=== PATIENT | female | born 1985 | race Caucasian/White ===

== ENCOUNTER 2017-06-25 22:18 | Inpatient (IN) | payer OTHER ==
--- NOTE | 2017-06-25 22:41 | EDPHY ---
H & P Stated Complaint: SI with ETOH and 4mg Ativan - Personal History LMP (Females 10-55): 1-7 Days Ago Tetanus Vaccine Date: < 10 YEARS - Medical/Surgical History Hx Asthma: No Hx Chronic Respiratory Disease: No Hx Diabetes: No Hx Cardiac Disease: No Hx Renal Disease: No Hx Cirrhosis: No Hx Alcoholism: No Hx HIV/AIDS: No Hx Splenectomy or Spleen Trauma: No Other PMH: migraines, ADHD, depression, hypothyroid, BIPOLAR, CONCUSSION X11 - Social History Smoking Status: Never smoked Time Seen by Provider: 06/25/17 22:30 HPI/ROS: CHIEF COMPLAINT: Suicidal ideation HISTORY OF PRESENT ILLNESS: 32-year-old female arrives via private vehicle with a friend who drove her stating that she has been drinking heavy amounts of alcohol all day, has been endorsing suicidal ideation with plan to either overdose on medication, lacerated her wrists or hang herself. She consumed a total of 4-6 mg of Ativan at least 4 hours ago. Denies hallucination. Denies headache. Denies chest pain. Denies seizure. Denies physical pain or trauma REVIEW OF SYSTEMS: A ten point review of systems was performed and is negative with the exception of the items mentioned in the HPI PAST MEDICAL & SURGICAL HISTORY: Depression SOCIAL HISTORY:positive for heavy alcohol use today PHYSICAL EXAM (Prior to examination, patient consented to physical exam, hands were washed and my usual and customary physical exam procedures followed) 1) GENERAL: Well-developed, well-nourished, alert and oriented. Appears intoxicated . 2) HEAD: Normocephalic, atraumatic 3) HEENT: Pupils equal, round, reactive to light bilaterally. Sclera anicteric. 4) NECK: Full range of motion, no meningeal signs. 5) LUNGS: Clear auscultation bilaterally, no wheezes, no rhonchi, no retractions. 6) HEART: Regular rate and rhythm, no murmur, no heave, no gallop. 7) ABDOMEN: No guarding, no rebound, no focal tenderness,, 8) MUSCULOSKELETAL: No peripheral edema or discoloration. 9) BACK: no visual or palpable abnormality. 10) SKIN: No rash, no petechiae. 11) Psychiatric: Patient is oriented X 3, there is no agitation. DIFFERENTIAL DIAGNOSIS: in no particular include but limited to suicidal ideation, homicidal ideation, depression, acute alcohol intoxication (Kandice Lawler Juju) Constitutional: Initial Vital Signs Temperature (C) 36.7 C 06/25/17 22:22 Heart Rate 95 06/25/17 22:22 Respiratory Rate 16 06/25/17 22:22 Blood Pressure 117/74 06/25/17 22:22 O2 Sat (%) 96 06/25/17 22:22 O2 Delivery Mode Room Air Allergies/Adverse Reactions: venom-honey bee [bee venom (honey bee)] Allergy (Verified 08/18/14 22:31) Home Medications: Medication Instructions Recorded Levothyroxine [Synthroid 112 mcg 0 mcg PO DAILY06 12/06/11 (RX)] Epi Pen Unk Dose 12/14/13 Cytomel 08/18/14 Ativan 06/25/17 Buspar (*) 06/25/17 Rexulti 06/25/17 Trintellix 06/25/17 Vyvanse 06/25/17 Medical Decision Making ED Course/Re-evaluation: 10:39 p.m.: Patient states that she has been drinking alcohol "all day". She has been placed on emergency department detain or secondary to acute intoxication, will be allowed to sober prior to mental health evaluation for suicidal ideation..Care of patient under supervision of [secondary] supervising physician Dr Han . (Kandice Lawler Juju) 0641: No acute events overnight. Resting. Still needs mental health evaluation. Suicidal with acute alcohol intoxication. On a detain her. 0642: This patient was subsequently placed on M1 hold by mental health. And had evaluation. Actively suicidal and will seek inpatient psychiatric hospitalization. Possibly [address] [place] [address] today. (Darius Han) Other Provider: 0700 care assumed by me from Dr. Han pending placement. 0820 patient has been accepted to [address] Dockery, I have completed the EMTALA. (Jad Alonso) - Data Points Laboratory Results: Laboratory Results 06/25/17 23:00 06/25/17 23:00 06/25/17 06/25/17 06/25/17 23:55 23:00 23:00 WBC RBC Hgb Hct MCV MCH MCHC RDW Plt Count MPV Neut % (Auto) Lymph % (Auto) Duval % (Auto) Eos % (Auto) Baso % (Auto) Nucleat RBC Rel Count Absolute Neuts (auto) Absolute Lymphs (auto) Absolute Monos (auto) Absolute Eos (auto) Absolute Basos (auto) Absolute Nucleated RBC Immature Gran % Immature Gran # Sodium 142 mEq/L mEq/L (134-144) Potassium 4.4 mEq/L mEq/L (3.5-5.2) Chloride 108 mEq/L mEq/L (97-110) Carbon Dioxide 22 mEq/l mEq/l (22-31) Anion Gap 12 mEq/L mEq/L (8-16) BUN 19 mg/dL mg/dL (7-23) Creatinine 1.7 mg/dL H mg/dL (0.6-1.0) Estimated GFR 34 Glucose 92 mg/dL mg/dL (70-100) Calcium 8.9 mg/dL mg/dL (8.5-10.4) Beta HCG, Qual NEGATIVE Salicylates < 1.0 mg/dL L mg/dL (2.0-20.0) Urine Opiates Screen NEGATIVE (NEGATIVE) Acetaminophen < 10 mcg/mL L mcg/mL (10-30) Urine Barbiturates NEGATIVE (NEGATIVE) Ur Phencyclidine Scrn NEGATIVE (NEGATIVE) Ur Amphetamine Screen NEGATIVE (NEGATIVE) U Benzodiazepines Scrn NON-NEGATIVE H (NEGATIVE) Urine Cocaine Screen NEGATIVE (NEGATIVE) U Marijuana (THC) Screen NEGATIVE (NEGATIVE) Ethyl Alcohol 85 mg/dL H mg/dL (0-10) 06/25/17 23:00 WBC 8.27 10^3/uL 10^3/uL (3.80-9.50) RBC 4.00 10^6/uL L 10^6/uL (4.18-5.33) Hgb 12.9 g/dL g/dL (12.6-16.3) Hct 37.1 % L % (38.0-47.0) MCV 92.8 fL fL (81.5-99.8) MCH 32.3 pg pg (27.9-34.1) MCHC 34.8 g/dL g/dL (32.4-36.7) RDW 11.9 % % (11.5-15.2) Plt Count 285 10^3/uL 10^3/uL (150-400) MPV 8.1 fL L fL (8.7-11.7) Neut % (Auto) 67.9 % % (39.3-74.2) Lymph % (Auto) 22.7 % % (15.0-45.0) Duval % (Auto) 6.7 % % (4.5-13.0) Eos % (Auto) 1.5 % % (0.6-7.6) Baso % (Auto) 1.0 % % (0.3-1.7) Nucleat RBC Rel Count 0.0 % % (0.0-0.2) Absolute Neuts (auto) 5.62 10^3/uL 10^3/uL (1.70-6.50) Absolute Lymphs (auto) 1.88 10^3/uL 10^3/uL (1.00-3.00) Absolute Monos (auto) 0.55 10^3/uL 10^3/uL (0.30-0.80) Absolute Eos (auto) 0.12 10^3/uL 10^3/uL (0.03-0.40) Absolute Basos (auto) 0.08 10^3/uL 10^3/uL (0.02-0.10) Absolute Nucleated RBC 0.00 10^3/uL 10^3/uL (0-0.01) Immature Gran % 0.2 % % (0.0-1.1) Immature Gran # 0.02 10^3/uL 10^3/uL (0.00-0.10) Sodium Potassium Chloride Carbon Dioxide Anion Gap BUN Creatinine Estimated GFR Glucose Calcium Beta HCG, Qual Salicylates Urine Opiates Screen Acetaminophen Urine Barbiturates Ur Phencyclidine Scrn Ur Amphetamine Screen U Benzodiazepines Scrn Urine Cocaine Screen U Marijuana (THC) Screen Ethyl Alcohol Departure - Departure Disposition: [facility] IP Clinical Impression: Suicidal ideation Condition: Fair Referrals: NONE *PRIMARY CARE P,. [Primary Care Provider] - As per Instructions
[2017-06-25 23:09] LABS: % IMMATURE GRANULYOCYTES 0.2 % (0.0-1.1); ABSOLUTE IMMATURE GRANULOCYTES 0.02 10^3/uL (0.00-0.10); ADD DIFF? NO; ADD MORPH? NO; ADD SCAN? NO; ATYPICAL LYMPHOCYTE FLAG 10 (0-99); FRAGMENT RBC FLAG 0 (0-99); HEMATOCRIT 37.1 % (38.0-47.0); HEMOGLOBIN 12.9 g/dL (12.6-16.3); LEFT SHIFT FLG 0 (0-99); LIPEMIA HEMOLYSIS FLAG 90 (0-99); MEAN CELL HEMOGLOBIN 32.3 pg (27.9-34.1); MEAN CELL HEMOGLOBIN CONCENTR. 34.8 g/dL (32.4-36.7); MEAN CELL VOLUME 92.8 fL (81.5-99.8); MEAN PLATELET VOLUME 8.1 fL (8.7-11.7); PLATELET CLUMPS FLAG 0 (0-99); PLATELET COUNT 285 10^3/uL (150-400); RED CELL DISTRIBUTION WIDTH 11.9 % (11.5-15.2)
[2017-06-25 23:31] LABS: ANION GAP 12 mEq/L (8-16); CALCIUM 8.9 mg/dL (8.5-10.4); CARBON DIOXIDE 22 mEq/l (22-31); CHLORIDE 108 mEq/L (97-110); CREATININE 1.7 mg/dL (0.6-1.0); ETHANOL SERUM 85 mg/dL (0-10); GLOMERULAR FILTRATION RATE 34; GLUCOSE 92 mg/dL (70-100); POTASSIUM 4.4 mEq/L (3.5-5.2); SALICYLATE < 1.0 mg/dL (2.0-20.0); SODIUM 142 mEq/L (134-144)
[2017-06-26] MEDS ORDERED: LIOTHYRONINE SODIUM 5 MCG TAB PO SCH (09:00)
[2017-06-26] MEDS ORDERED: MAGNESIUM HYDROXIDE 30 ML UDCUP PO PRN (12:30)
[2017-06-26] MEDS ORDERED: LORazepam 0.5 MG TAB PO PRN (12:30)
[2017-06-26] MEDS ORDERED: MAG HYDROX/AL HYDROX/SIMETH 30 ML UDCUP PO PRN (12:30)
[2017-06-26] MEDS ORDERED: ACETAMINOPHEN 325 MG TAB PO PRN (12:30)
[2017-06-26] MEDS ORDERED: LEVOTHYROXINE 137 MCG TAB PO SCH (12:45)
[2017-06-26] MEDS ORDERED: ZIPRASIDONE HCL 20 MG CAP PO ONE (14:18)
[2017-06-26] MEDS ORDERED: hydrOXYzine HCL 25 MG TAB PO PRN (14:20)
[2017-06-26] MEDS: LIOTHYRONINE SODIUM 5 MCG TAB PO SCH (14:24)
--- NOTE | 2017-06-26 15:36 | BAPA ---
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 CHIEF COMPLAINT: "I had a really bad week. My depression's really bad." HISTORY OF PRESENT ILLNESS: Patient reports that she has felt depressed and hopeless about life since around age 20, when she missed the Olympics. She reports that she has had recurrent feelings of feeling sad, down, hopeless, and difficulty enjoying things. She reports that her depression has been worse over the past 6 months. She reports in February, she overdosed on Wellbutrin at home, did not tell anyone, but then did tell her outpatient provider several days later. She also reports that she has felt more overwhelmed, and she has had brief thoughts of overdosing on pills, cutting her wrists or hanging herself. She denies any recent furtherance toward self-harm or self- destructive behavior. She reports that yesterday went over to a friend's house to have dinner. She reports she had dinner and several drinks with her friend, and reported that she was having these suicidal thoughts, and her friend took her to the emergency room. The patient was admitted on an M1 hold from the emergency department due to concern that she was a danger to herself. Patient denies any recurrent or regular substance abuse. She reports only drinking once a week. She denies any history of hallucinations or paranoia. She does report a history of probable manic episodes in the past. She reports in the past she has impulsively gone on spending sprees. She has also impulsively traveled to [place]. She has also been promiscuous when she has mood swings. She reports approximately 6 years ago she had a 3-4 month episode where she only slept 2-3 hours nightly with racing thoughts, and during that time was more agitated and more impulsive. She reports in the past week she has not been doing anything impulsive. Has not had any grandiosity or any decreased need for sleep or any hyperactivity. She reports she has been sleeping about 10 hours. She does report feeling irritable and agitated, and sometimes feeling that her mood is going up and down. She reports that she has been on Trintellix for depression for the past month, and then she reports that she has been on Vyvanse for about 3 weeks for ADHD. She also reports about a week ago she started Rexulti for depression. PAST PSYCHIATRIC HISTORY: The patient apparently has a history of one 48-hour hospitalization at [facility]. At that time, she apparently had suicidal thoughts. The patient reports numerous psychiatric medication trials in the past. She reports 1 overdose on Wellbutrin in the summer of 2016. She denies other suicide attempts. She denies any history of violence toward others. She may have developed a rash with Lamictal in the past, and so this will be listed as an allergy. She reports no clear benefit from Trintellix, Rexulti, Abilify, Seroquel, [place]. She also reports that she got agitated and "crazy wild" with Ritalin. She also reports no benefit from Adderall in the past. She reports excessive sedation with Seroquel. She reports that she developed restlessness with Abilify. PAST MEDICAL HISTORY: The patient is currently in outpatient treatment with Susanne Nascimento at [facility]. She reports she is in treatment for thyroid disease, as well as renal disease and a possible autoimmune disease. She currently takes Synthroid 137 mcg daily, Cytomel 15 mg daily for thyroid disease. The patient was diagnosed with borderline renal insufficiency as well , of unknown cause and has a history of recurrent urinary tract infections. She reports multiple past concussions during speed skating accidents. ALLERGIES: She is allergic to bee stings. She is also possibly allergic to Lamictal. SOCIAL HISTORY: She reports she was raised by her parents. She reports that her mother was verbally abusive and may have had a mood disorder. She denies any family history of suicide attempts or substance abuse. She reports that at age 11, she went to an Olympic training camp and moved away from her parents. She graduated from college. She has a master's degree in teaching. She currently lives alone with a dog and reports a friend is watching the dog while she is in the hospital. She has never been , has no children. She has several friends in the area. VITAL SIGNS: Blood pressure 109/66, heart rate 77, respiratory rate 14, pulse ox 98% on room air. She is afebrile. LABS: White blood cell count 8.2, hemoglobin 12.9, platelet count 285. Sodium 142, potassium 4.4, creatinine 1.7, glucose 92, calcium 8.9. TSH is low at 0.113. Urine drug screen was positive for benzodiazepines as the patient was prescribed p.r.n. Ativan prior to admission. She had a blood alcohol level of 0.085. Addendum to medications: The patient is reportedly taking Ativan 1 mg daily p.r.n. for anxiety, Trintellix unknown dose, Rexulti unknown dose, as well as BuSpar 10 mg twice a day and Vyvanse possibly 70 mg daily along with Synthroid 137mcg and Cytomel 15mg. MENTAL STATUS EXAMINATION: She is an alert white female in no acute distress with a possible rash on both of her arms. He speech is regular in rate and rhythm but loud at times. She appears well-appearing, is ambulatory. She has no focal weakness or tremors. She appears distracted. She does not appear hyperactive or restless. She has had labile affect on the unit. When she was brought in by the paramedics, she was smiling and joking with the paramedics. Later she was dysphoric and tearful later. Later she was smiling and joking. She has labile affect. Her mood is "not very good." Her thoughts are organized. She reports brief suicidal thoughts to hang herself or cut her wrists, but denies furtherance toward this. She denies any violent thoughts. She denies hallucinations or paranoia. Her memory is good. Her insight is fair. Her judgment appears to be impaired. ASSESSMENT: Bipolar disorder type 1, most recent episode depressed with mixed features. History of attention deficit hyperactivity disorder. History of multiple concussions. Also, hypothyroidism and possible autoimmune disease, with borderline renal insufficiency and a history of a positive KATHYA. The overall assessment is the patient appears to be having a depressive episode with mixed features. She has been prescribed an antidepressant called Trintellix for the past few months for depression, as well as Vyvanse in the past 3 weeks for attention deficit hyperactivity disorder. She denies any recent reckless behaviors or insomnia, but she has had mood lability, irritability, and severe depression with suicidal thinking. PLAN: 1. The patient is on M1 hold for possible danger to herself. She will be on safety precautions or suicide precautions on the unit. 2. Discussed the assessment. The patient was agreeable to stop her Vyvanse, BuSpar, Rexulti, and Trintellix. After a discussion of alternative treatments including Tegretol, Depakote, electroconvulsive therapy, and Geodon, the patient prefers to start Geodon. We will give 20 mg now and reevaluate for side effects in about 90 minutes. 3. Will continue the patient's Synthroid. The patient was seen by the hospitalist, who recommended reducing her Cytomel from 15 mg to 10 mg. The patient does report she has endocrinology and renal specialty follow-up appointments after discharge. 4. We will monitor the patient's behavior on the inpatient unit. 5. We will order 25 mg of hydroxyzine p.r.n. for insomnia or restlessness 6. The patient appears to be at low risk for alcohol or benzodiazepine withdrawal. We will order Ativan 1 mg q.4 hours p.r.n. if having severe anxiety or panic. 7. The patient reports her friend is taking care of her dog. 8. I left a voicemail for the patient's nurse practitioner, Dr. Shannen Naylor , phone #[phone] extension 7. Addendum: patient tolerated Geodon 20mg without side effects, evaluated 90 minutes after taking a dose. Ordered Geodon 20mg BID with food. Patient given SHANTELL handouts on Geodon and ECT to review. /[id number]/MODL MTDD
--- NOTE | 2017-06-26 17:01 | BCON ---
[f rep st] BEHAVIORAL HEALTH CONSULTATION INTERNAL MEDICINE CONSULTATION DATE OF CONSULTATION: 06/26/2017 REFERRING PHYSICIAN: HERACLIO AVILA MD REASON FOR REFERRAL: Medical clearance for inpatient behavioral health stay. HISTORY OF PRESENT ILLNESS: This patient was brought to the [facility] Emergency Department by a friend. She had been having suicidal ideation with a plan, and she has been drinking heavy amounts of alcohol. She was evaluated by the mental health team and admitted for further psychiatric care. She is currently without any acute complaints. PAST MEDICAL HISTORY: 1. Chronic renal insufficiency. 2. Frequent UTIs. 3. Multiple concussions. 4. Vertebral fracture and other orthopedic fractures. 5. Depression. MEDICATIONS: 1. Liothyronine sodium 15 mcg p.o. daily. 2. Levothyroxine 137 mcg p.o. daily. 3. Levalbuterol 1 puff daily p.r.n. 4. Lorazepam 1 mg p.o. daily p.r.n. 5. EpiPen p.r.n. allergic reaction. 6. Buspirone 10 mg p.o. twice daily. 7. Vortioxetine 20 mg p.o. daily. 8. Brexpiprazole 0.5 mg p.o. at bedtime. 9. Lisdexamfetamine 70 mg p.o. daily. ALLERGIES: She has an allergy to honey bee venom. SOCIAL HISTORY: She lives by herself with a dog. She is a nonsmoker. She uses alcohol. 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 FAMILY HISTORY: Noncontributory. She denies any history of renal insufficiency. REVIEW OF SYSTEMS: A 10-point review of systems was conducted and was negative. PHYSICAL EXAMINATION: VITAL SIGNS: Blood pressure is 109/66, heart rate is 77, respiratory rate is 14, oxygen saturation is 98% on room air, temperature is 36.9 degrees centigrade. Her weight is 72.6 kg for a body mass index of 23.6. GENERAL: This is a well-nourished, well-developed woman, appears her chronologic age, cooperative and in no acute distress. HEENT: Extraocular movements are intact. Pupils are equal, round, reactive to light. Mucous membranes are moist. Dentition is in good condition. NECK: Supple. HEART: Regular rate and rhythm with no murmurs, rubs, or gallops. LUNGS: Clear to auscultation bilaterally. ABDOMEN: Soft, nontender, nondistended with normoactive bowel sounds. EXTREMITIES: No cyanosis, clubbing, or edema. NEUROLOGIC: She is alert and oriented x3. Cranial nerves 2-12 are grossly intact. There is no focal weakness, and sensation is intact to light touch. LABORATORY STUDIES: Drawn in the emergency department, CBC revealed very mild anemia with a hematocrit of 37.1, hemoglobin was normal. Serum chemistry revealed an elevated creatinine of 1.7 with estimated glomerular filtration rate of 34. Otherwise, renal function and electrolytes were within normal limits. Beta hCG was negative for . Toxicology screen in the serum was significant for ethyl alcohol 85 mg/dL, otherwise, negative for salicylates or acetaminophen. Urine toxicology screen was non-negative for benzodiazepines but negative for other substances of abuse. Other recent labs: On 06/22/2017, her creatinine was 1.1, her TSH was somewhat suppressed at 0.218 with an elevated free T3 at 5.96. ASSESSMENT/RECOMMENDATIONS: 1. Mental health issues. Pending further evaluation and management per Psychiatry and the mental health team. 2. Chronic renal insufficiency. This had been mild, but yesterday in the emergency department, she had a markedly elevated creatinine, possibly due to dehydration. She reports that she is seeing urologist, Dr. Pike, and evaluation is ongoing regarding the etiology of her renal insufficiency. She can follow up after discharge with Primary Care and Urology. Advise using caution with psychiatric medications which are cleared renally. 3. Hypothyroidism with a recent suppressed TSH. She appears to be getting more Cytomel than she needs, given the elevated free T3, and I would advise reducing her dose from 15 mcg daily to 10 mcg daily. I will make this change in her orders. She does not appear to show any overt signs or symptoms of hyperthyroidism. I see no medical contraindications to this patient's continued stay on the inpatient behavioral health unit or to any psychiatric medications or procedures. Thank you very much for including me in the care of this patient, and please do not hesitate to contact me or the hospitalist service should there be need for further medical evaluation. /[id number]/MODL and [id number], 06/26/17, nicholas KAUR
[2017-06-26] MEDS: ZIPRASIDONE HCL 20 MG CAP PO SCH (20:48)
[2017-06-26] MEDS ORDERED: FLU VACC QS 2017-18 (3YR+)/PF 0.5 ML SYR (FLUARIX QUAD) IM ONE (20:54)
[2017-06-27] MEDS: ZIPRASIDONE HCL 20 MG CAP PO SCH ×2 (08:39→20:21)
[2017-06-27] MEDS: LIOTHYRONINE SODIUM 5 MCG TAB PO SCH (08:40)
[2017-06-27] MEDS: LEVOTHYROXINE 137 MCG TAB PO SCH (10:53)
--- NOTE | 2017-06-27 14:15 | SOAPPROG ---
SOAP Progress Note Assessment/Plan: Assessment: Bipolar Disorder secondary to multiple concussions, depressed with mixed features History of ADHD and unspecified anxiety disorder Thyroid disease (positive anti-thyroperoxidase antibody), takes Synthroid and Cytomel Borderline renal insufficiency Patient admitted for SI with mixed mood symptoms, while taking Rexulti, Trintillex, Ativan, Vyvanse. Patient reports sleeping and eating well, felt more hopeful this AM but has some continued mood cycling. Patient is fearful of psychiatric medications due to multiple past side effects to antidepressants and mood stabilizers (multiple SSRIs, Wellbutrin, Trintillex, Abilify, Seroquel, Olanzapine, Lamictal, [place] ; hydroxyzine). Plan: Continue Geodon 20mg BID with food Reviewed SHANTELL handout on Geodon, discussed risk of EPS, NMS, tardive dyskinesia , metabolic syndrome, cardiac arrhythmia Discontinue PRN Hydroxyzine Continue Ativan 1mg [id number] PRN anxiety Check B12 level Monitor mood stability and medication side effects on unit Discharge tomorrow if stable 06/27/17 14:16 06/27/17 14:21 Subjective: "Pretty good this AM, now bored, pacing, restless." Patient reports sleeping well. 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 Denies feeling hopeless or helpless but reports this afternoon feeling less hopeful and more dysphoric. Denies plans to hurt self. No physical complaints except headache, requests PRN ativan for anxiety. Objective: Vital Signs Temp Pulse Resp BP Pulse Ox 36.6 C 58 L 12 128/60 H 98 06/27/17 06:00 06/27/17 06:00 06/27/17 06:00 06/27/17 06:00 06/27/17 06:00 Alert WF, ambulatory without tremors or weakness. Speech RRR. Mood 'pretty good this AM, now bored, restless. Affect restricted, sad, later smiling with humor. Thoughts organized. Denies SI or HI or AH. Fair insight, appropriate judgment. Staff report patient slept 8.5 hours. Ate well, attended groups, denies SI on the unit. - Time Spent With Patient Time Spent With Patient: 35 minutes - Pending Discharge Pending Discharge Within 24 Hours: Yes Pending Discharge Date: 06/28/17 Pending Discharge Time: 11:00 ICD10 Worksheet Patient Problems: Problems Problem Status Onset Hypothyroidism Acute Bipolar disorder with current episode depressed Acute H/O multiple concussions Acute Suicidal ideation Acute
[2017-06-28 06:59] VITALS: BP 116/54; PULSE 54; RESP 14; TEMP 98.2; O2SAT 97
[2017-06-28] MEDS: ZIPRASIDONE HCL 20 MG CAP PO SCH (08:44)
[2017-06-28] MEDS: LEVOTHYROXINE 137 MCG TAB PO SCH (08:44)
[2017-06-28] MEDS: LIOTHYRONINE SODIUM 5 MCG TAB PO SCH (08:44)
--- NOTE | 2017-06-28 09:10 | BDS ---
[f rep st] BEHAVIORAL HEALTH DISCHARGE SUMMARY IDENTIFICATION: This is a 32-year-old single white female who lives alone with a dog. 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 ADMITTING DIAGNOSES: 1. Bipolar disorder secondary to multiple concussions. 2. Suicidal ideation. 3. History of attention deficit hyperactivity disorder. 4. History of anxiety disorder, not otherwise specified. 5. Hypothyroidism. 6. 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 REASON FOR ADMISSION: The patient was taken to the emergency room on 06/25 by a friend. The patient apparently had been skiing in the morning, drinking alcohol with a friend, had worsening suicidal ideation. She apparently has chronic thoughts of or suicide for many years, but her symptoms got worse. She had thoughts of harming herself in multiple ways such as overdosing or hanging herself. She was then admitted on M1 hold to the inpatient psychiatric unit. INITIAL EXAMINATION: She was an alert white female in no acute distress. She was ambulatory without weakness or tremors. She had mood lability. She was smiling, laughing and joking with the paramedics when she was brought onto the unit. During the interview, she alternatively was smiling, laughing and joking about her symptoms and then later dysphoric, tearful, crying about her mental health problems. She reported brief suicidal thoughts with multiple plans on the day she went to the ER. She denied violent thoughts, denies AH or paranoia , had fair memory. The patient denied any psychotic symptoms. BRIEF PSYCHIATRIC HISTORY: The patient reported attention deficit hyperactivity disorder symptoms in childhood and adolescence. As an adult, she developed severe depression with recurrent suicidal thoughts along with racing thoughts. She has a history of a hypomanic episode in the past where she went 2 to 3 months with very little sleep, increased goal-directed behavior, including impulsive traveling to [place] and promiscuity. She also has a history of mood lability and brief agitation for many years. The patient has had multiple psychiatric medication trials. She reports a history of severe akathisia with Abilify. She also reports a history of side effects from Lamictal, Seroquel, trazodone, Wellbutrin, and multiple SSRI antidepressants. Reports agitation and irritability with Adderall and Ritalin in the past. She is in outpatient treatment at [facility] with psychiatric nurse practitioner, Shannen Dayday, phone number [phone], extension #[phone]. She was prescribed Trintillex, Rexulti, Vyvanse 70mg, and Ativan 1mg daily PRN panic attack. The patient has received individual psychotherapy in the past as well. PAST MEDICAL HISTORY: The patient has a history of migraines. She also has a history of an atypical hypothyroid condition with a positive anti- thyroperoxidase antibody. She has been seeing Susanne Nascimento at [facility]. She was taking Synthroid 137 mcg daily and Cytomel 50 mg daily for hypothyroidism. The patient has a history of borderline renal insufficiency and apparently was referred to a kidney specialist as an outpatient. The patient reports approximately 11 concussions concurrent with speed skating. HOSPITAL COURSE: The patient was admitted on the inpatient unit for suicidal ideation with thoughts of overdosing on pills. She apparently had been drinking alcohol and took between 4 to 6 mg of Ativan on the day of admission. The patient reported that she had been on Trintellix as an antidepressant for approximately 2 months. She reported Vyvanse was started for attention deficit hyperactivity disorder approximately 3 weeks prior to admission. She was also prescribed Rexulti the week prior to admission. The patient reported racing thoughts and feeling distracted. She did report mood lability, irritability, depression symptoms, feeling hopeless and suicidal. She reported brief thoughts of overdosing on pills, cutting her wrists or hanging herself prior to admission. The patient was agreeable to discontinue stimulant medications. The patient reported past adverse reactions to Adderall and Ritalin and reported that the Vyvanse was not helpful to her. The patients Trintellix and Rexulti were discontinued as these were ineffective. There was also concern that she was having a mixed episode from the Trintellix. The patient was agreeable to start a mood stabilizer. The patient was given information about treatment options including electroconvulsive therapy as well as a trial of either Depakote or Tegretol. The patient preferred to try Geodon as a mood stabilizer and declined to start ECT. The patient was started on Geodon 20 mg twice daily. The patient tolerated this medication without any tremors or stiffness or restlessness. The patient did have improvement in her mood stability prior to discharge and a reduction in her racing thoughts. The patient was observed on the unit. She did have mood lability during the first 24 hours on the unit that declined while on the unit. The patient was able to attend groups regularly as well as attend meals and interact appropriately with staff and patients. The patient did not appear severely agitated or impulsive. She did not have sustained dysphoria. She had a remission of her suicidal thoughts. She was able to identify multiple coping skills to use when she left the unit to manage suicidal thinking including walking her dog, listening to music, talking with a friend, and exercising. 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 The patient reported improvement in her concentration, but reported she still feels inattentive at times, however, she felt like she was doing well enough to return to work next week. The patient's outpatient provider was notified of the patient's admission. The patient was seen by the hospitalist who reduced her Cytomel from 15 mg to 10 mg due to the low TSH. The patient was continued on her Synthroid. The patient had 1 dose of Ativan for a headache and anxiety the day prior to discharge. Overall, the patient reported improvement in her mood stability and her outlook on the future and was able to complete safety planning with the therapist on the unit. LABORATORY DATA: The patient had a suppressed TSH of 0.1, vitamin B12 of 690, white blood cell count 8.2, hemoglobin 12.9, platelet count 285, sodium 142, potassium 4.4, creatinine 1.7, calcium 8.9, glucose 92. Serum beta hCG was negative. Her urine tox screen was positive for benzodiazepines only. Her blood alcohol level was 85 when she was admitted. CONDITION ON DISCHARGE: She is an alert white female in no acute distress. She is ambulatory without tremors or restlessness or weakness or slowing. She has good eye contact. Her mood is "better." Her affect is euthymic with good eye contact and reactive. Her thoughts are organized with fair detail. She denies any thoughts to hurt herself or others. She denies paranoia or hallucinations. Her memory is good. Her insight is good. Her judgment is appropriate. DISCHARGE DIAGNOSES: 1. Bipolar disorder secondary to multiple concussions, depressive episode with mixed features. 2. History of attention deficit hyperactivity disorder. 3. History of anxiety disorder, not otherwise specified. 4. Hypothyroidism with positive anti-thyroperoxidase antibody. 5. Borderline renal insufficiency. 6. History of positive antinuclear antibody test. DISCHARGE MEDICATIONS: Geodon 20 mg p.o. twice daily with food, Ativan 0.5 mg p.o. q.6 hours p.r.n. for severe anxiety (#15 without refills). The patient was warned about the risk of cognitive impairment, accidents and falls with Ativan and was instructed not to drink alcohol or drive after taking this medication. Synthroid 137 mcg daily. Cytomel 10 mcg p.o. daily. DISPOSITION: The patient will be leaving independently from the unit. FOLLOWUP: The patient has a psychiatric followup next week with her psychiatric nurse practitioner, Shannen Naylor at [facility]. She also has a primary care followup with Susanne Nascimento at [facility]. 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 LEGAL STATUS: The patient was admitted on an M1 hold but will be discharged to receive treatment on a voluntary basis after discharge. INFORMED CONSENT: The patient was warned about the risk of Geodon. We discussed the risk of akathisia, sedation, neuroleptic malignant syndrome, tardive dyskinesia, metabolic syndrome and cardiac arrhythmia with Geodon. The patient was given information about alternative treatments including Depakote, Tegretol and electroconvulsive therapy. Patient was instructed to monitor her mood symptoms and distractibility over the next week and then discuss the risks/ benefits of restarting an antidepressant or an ADHD medication next week with her outpatient provider. /[id number]/MODL MTDD
== END 2017-06-28 10:11 | disposition home or self-care (01) | DRG 884 ==
LOC: BBEH 06-26 11:45
DX: F06.34 Mood disorder due to known physiological condition with mixed features (principal); F90.9 Attention-deficit hyperactivity disorder, unspecified type; F41.9 Anxiety disorder, unspecified; E03.9 Hypothyroidism, unspecified; N18.9 Chronic kidney disease, unspecified; Z87.820 Personal history of traumatic brain injury; T42.4X2A Poisoning by benzodiazepines, intentional self-harm, initial encounter; T51.92XA Toxic effect of unspecified alcohol, intentional self-harm, initial encounter; F10.129 Alcohol abuse with intoxication, unspecified
CPT/HCPCS: 80305; 82607-90; G0008; G0480

== ENCOUNTER 2019-01-16 11:15 | Emergency (ER) | payer OTHER | END 2019-01-16 12:35 | disposition home or self-care (01) ==